=== PATIENT | female | born 1950 | race Caucasian/White ===

== ENCOUNTER 2017-09-29 09:58 | Emergency (ER) | payer OTHER ==
[2017-09-29 10:12] VITALS: TEMP 98.1
--- NOTE | 2017-09-29 11:37 | EDPHY ---
H & P Stated Complaint: numbness off and on in jaw, tongue, R 1-3 digits x1 mo; increase this week Time Seen by Provider: 09/29/17 10:13 HPI/ROS: CHIEF COMPLAINT: Facial numbness HISTORY OF PRESENT ILLNESS: This is a 67-year-old [id number] female who presents with intermittent facial numbness. She 1st noticed this 3 or 4 weeks ago while she was at work. Initially the left side of her mouth and face felt numb, as if it had been injected with Novocain. This sensation extended onto the lip and then over onto the right side of her lower face. She subsequently noticed that the 1st 3 fingers of her right hand felt numb. This lasted for couple of hours. There was no associated pain. She had no appreciable weakness. She had a 2nd episode the following day that resolved spontaneously after a short period of time and an even shorter episode the day after that. She saw her primary care physician who advised her to go immediately to an emergency department should these symptoms recur. She did okay for a couple of weeks but four days ago had a similar episode that lasted half an hour. She had an episode again the day after that and 2 episodes yesterday.. All of these resolved spontaneously. She did not seek medical care at the time of any of these episodes, but comes in this morning concerned about them. She has been taking an aspirin daily since these began. She has no history of atrial fibrillation. She did speak with her dentist and was assured that this was unlikely to be a dental issue. She denies headache, confusion, visual changes, change in hearing, new weakness , difficulty walking. She does have osteoarthritis involving her hands and over the last many months has noticed worsening arthritis pain and some increasing weakness of both hands. REVIEW OF SYSTEMS: A ten point review of systems was performed and is negative with the exception of the items mentioned in the HPI. Past medical history: Hypertension, tobacco abuse Family history: She has a daughter with multiple sclerosis. Social history: She works part-time at a [employer]. She smokes 1/2 pack of cigarettes daily. She drinks 2 alcoholic beverages daily. General Appearance: Alert. Vital signs reviewed. Blood pressure 161/94 at triage. Eyes: Pupils equal and round, no conjunctival injection, no discharge. Anicteric. ENT, Mouth: Mucous membranes are moist, no oropharyngeal erythema or edema. Dentition appears to be in good repair. Gingiva normal. Neck: No lymphadenopathy, supple. No carotid bruits. Respiratory: Lungs are clear to auscultation; no wheezes, rales, or rhonchi. Cardiovascular: Regular rate and rhythm; no murmur, rub, or gallop. Gastrointestinal: Abdomen is soft and nontender, no masses or organomegaly, bowel sounds normal. Skin: Warm and dry, no rashes on exposed skin, normal color. Back: Nontender to palpation over the thoracolumbar spine. No CVAT. Extremities: No lower extremity edema, no calf tenderness or swelling. Neurological: Alert and oriented. Moving all four extremities easily and equally. Cranial nerves II through XII are examined and are intact (visual acuity not tested). Strength is 5 over 5 bilaterally with testing of all major motor groups. Sensation is intact to light touch over all 4 extremities. Deep tendon reflexes are 2+ in the biceps and knees bilaterally. Gait is normal. Mxvuue-op-oasm is performed accurately. Psychiatric: Normal affect. - Personal History Current Tetanus/Diphtheria Vaccine: Yes Tetanus Vaccine Date: 2014 - Medical/Surgical History Hx Asthma: No Hx Chronic Respiratory Disease: No Hx Diabetes: No Hx Cardiac Disease: No Hx Renal Disease: No Hx Cirrhosis: No Hx Alcoholism: No Hx HIV/AIDS: No Hx Splenectomy or Spleen Trauma: No Other PMH: htn, hip surgery, elbow surgery - Social History Smoking Status: Current every day smoker Constitutional: Initial Vital Signs Temperature (C) 36.7 C 09/29/17 10:07 Heart Rate 61 09/29/17 10:07 Respiratory Rate 20 09/29/17 10:07 Blood Pressure 161/94 H 09/29/17 10:07 O2 Sat (%) 94 09/29/17 10:07 O2 Delivery Mode Room Air Allergies/Adverse Reactions: No Known Allergies Allergy (Verified 09/29/17 10:12) Home Medications: Medication Instructions Recorded Labetalol HCl 07/28/15 Lisinopril 07/28/15 Aspirin 09/29/17 Atorvastatin Calcium 09/29/17 Medical Decision Making ED Course/Re-evaluation: 67-year-old female with a history of hypertension who presents with intermittent facial numbness and some numbness of the digits of her right hand. I am concerned about the possibility of TIA. She and I spoke at length about the best next step. She is currently symptom free and has been so for over 12 hr. I recommended full evaluation for TIA--MRI, carotid ultrasounds, echocardiogram. She does not want to be hospitalized at this point in time. She understands that if these are transient ischemic attacks she is at risk of stroke and that her risk is highest in the immediate time frame during which she is having TIAs. She also understands that her blood pressure is high in the emergency department and that this is a risk factor for stroke. Nevertheless, she refuses hospitalization at this point in time. She is alert and fully oriented, capable of making her own medical decisions. She understands that stroke can cause permanent neurologic damage and . After our discussion, she agreed to undergo an outpatient MRI which was scheduled for tomorrow morning at 9:00 a.m.. These results will be telephoned to me. She will continue to take her daily aspirin. She has promised me that if she has any numbness or any new symptoms she will present immediately at an emergency department. She understands that she needs to contact primary care physician, Dr. Tyson, and arrange a follow-up appointment. I will try to contact that office. Differential Diagnosis: I considered a differential diagnosis that includes but is not limited to TIA, stroke, MS or other demyelinating process, headache phenomenon, cervical nerve compression. Departure - Departure Disposition: Home, Routine, Self-Care Clinical Impression: Facial numbness Condition: Good Instructions: Transient Ischemic Attack (ED), Paresthesia (ED) Additional Instructions: As you know, it is not clear yet what is causing you to have intermittent facial and hand numbness. However, I am very concerned that you might be having "mini strokes". These are called transient ischemic attacks. I am giving you some printed information about this. If you develop facial or hand numbness today or tonight you need to be seen immediately in an emergency department. Call 911 for transportation. You have an MRI scan of your brain scheduled for tomorrow morning, September 30, at 9:00 a.m.. This study will be done at [facility] located at [facility]. These results will be available to me and also to Dr. Tyson. Please call today and schedule an appointment with Dr. Tyson. As we discussed, if it turns out that you are having transient ischemic attacks, you need additional workup including ultrasound studies of your heart and your neck. Continue to take her daily aspirin. Referrals: Sharon Tyson MD [Primary Care Provider] - As per Instructions
[2017-09-29 12:37] VITALS: BP 168/85; PULSE 57; RESP 16; O2SAT 95
[2017-09-30] MEDS ORDERED: GADOBUTROL 10 ML VIAL IVP ONE (09:35)
== END 2017-09-29 11:40 | disposition home or self-care (01) ==
LOC: CED 09:58
DX: R20.0 Anesthesia of skin (principal); I10 Essential (primary) hypertension; F17.200 Nicotine dependence, unspecified, uncomplicated; Z79.82 Long term (current) use of aspirin
CPT/HCPCS: A9585

== ENCOUNTER → 2017-09-30 | Outpatient (CLI) | payer OTHER | LOC: FLAB 08:43 | PROVIDERS: ATTEND Emergency Medicine | DX: R20.2 Paresthesia of skin (principal); J32.9 Chronic sinusitis, unspecified ==